=== PATIENT | female | born 1980 | race Caucasian/White ===

== ENCOUNTER 2017-02-07 08:00 | Outpatient (CLI) | payer MEDICAID | END 2017-02-07 08:01 | disposition home or self-care (01) | DX: Z33.1 Pregnant state, incidental (principal) ==

== ENCOUNTER 2017-06-16 07:36 | Outpatient (CLI) | payer MEDICAID, OTHER ==
[2017-06-16 19:26] LABS: BASOPHILS % (AUTO) 0.5 %; EOSINOPHILS % (AUTO) 0.6 %; HCT - HEMATOCRIT 37.5 % (37.0-47.0); HGB - HEMOGLOBIN 12.5 g/dL (12.0-16.0); LYMPHOCYTES # (AUTO) 2.1 10^3/uL (1.5-3.5); LYMPHOCYTES % (AUTO) 26.9 %; MEAN CORPUSCULAR HEMOGLOBIN 30.3 pg (27.0-31.0); MEAN CORPUSCULAR HGB CONC 33.5 g/dL (32.0-36.0); MEAN CORPUSCULAR VOLUME 90.6 fL (81.0-99.0); MEAN PLATELET VOLUME 8.7 fL (7.9-10.8); MONOCYTES # (AUTO) 0.4 10^3/uL (0.0-1.0); MONOCYTES % (AUTO) 4.7 %; NEUTROPHILS # (AUTO) 5.3 10^3/uL (1.5-6.6); NEUTROPHILS % (AUTO) 67.3 %; RED BLOOD COUNT 4.14 10^6/uL (4.20-5.40); UNCORRECTED WHITE BLOOD COUNT 7.8 x10^3/uL; WHITE BLOOD COUNT 7.8 x10^3/uL (4.8-10.8)
[2017-06-16 19:44] LABS: IRON 38 ug/dL (28-170); TOTAL IRON BINDING CAPACITY 350 ug/dL (250-450); TRANSFERRIN 250 mg/dL (192-382)
== END 2017-06-16 07:37 | disposition home or self-care (01) ==
LOC: LAB.WCP 07:36
PROVIDERS: ATTEND Family Medicine
DX: D50.9 Iron deficiency anemia, unspecified (principal)
CPT/HCPCS: 36415; 82728; 83540; 84466; 85025

== ENCOUNTER 2017-09-01 08:00 | Outpatient (CLI) | payer OTHER ==
[2017-09-01 13:44] LABS: BASOPHILS % (AUTO) 0.5 %; EOSINOPHILS # (AUTO) 0.1 10^3/uL (0.0-0.7); EOSINOPHILS % (AUTO) 1.6 %; HCT - HEMATOCRIT 38.3 % (37.0-47.0); HGB - HEMOGLOBIN 12.8 g/dL (12.0-16.0); LYMPHOCYTES # (AUTO) 3.4 10^3/uL (1.5-3.5); LYMPHOCYTES % (AUTO) 38.2 %; MEAN CORPUSCULAR HGB CONC 33.5 g/dL (32.0-36.0); MEAN CORPUSCULAR VOLUME 89.8 fL (81.0-99.0); MEAN PLATELET VOLUME 8.9 fL (7.9-10.8); MONOCYTES # (AUTO) 0.5 10^3/uL (0.0-1.0); MONOCYTES % (AUTO) 5.7 %; NEUTROPHILS # (AUTO) 4.9 10^3/uL (1.5-6.6); RED BLOOD COUNT 4.27 10^6/uL (4.20-5.40); RED CELL DISTRIBUTION WIDTH 14.6 % (12.0-15.0)
[2017-09-01 14:13] LABS: HEMOGLOBIN A1C 0.43 g/dL
[2017-09-01 14:29] LABS: BILIRUBIN,TOTAL 0.5 mg/dL (0.2-1.0); BUN - BLOOD UREA NITROGEN 12 mg/dL (6-20); CALCIUM 8.8 mg/dL (8.5-10.3); CARBON DIOXIDE - CO2 25 mmol/L (21-32); CHLORIDE 105 mmol/L (101-111); CHOL/HDL RATIO 4.4 (<4.4); CHOLESTEROL 222 mg/dL; CREATININE 0.7 mg/dL (0.4-1.0); GFR - MDRD 95 (>89); GLUCOSE 102 mg/dL (70-100); HDL CHOLESTEROL 50 mg/dL; IRON 28 ug/dL (28-170); LDL/HDL RATIO 3.1 (<4.4); POTASSIUM 3.9 mmol/L (3.5-5.0); SODIUM 136 mmol/L (135-145); TOTAL IRON BINDING CAPACITY 336 ug/dL (250-450); TOTAL PROTEIN 7.4 g/dL (6.7-8.2); TRANSFERRIN 240 mg/dL (192-382); TRIGLYCERIDES 94 mg/dL; VLDL CHOLESTEROL 19 mg/dL
== END 2017-09-01 08:01 | disposition home or self-care (01) ==
LOC: LAB.WCP 08:00
PROVIDERS: ATTEND Family Medicine
DX: D64.9 Anemia, unspecified (principal); E88.81 Metabolic syndrome and other insulin resistance
CPT/HCPCS: 36415; 80053; 80061; 82728; 83036; 83540; 84466; 85025

== ENCOUNTER 2018-02-17 13:54 | Outpatient (CLI) | payer OTHER ==
[~2018-02-17 13:54] MED LIST: GADOBUTROL 15 MMOL/15 ML VIAL ONE
[2018-02-17] MEDS ORDERED: GADOBUTROL 15 MMOL/15 ML VIAL IVP ONE (15:16)
--- NOTE | 2018-02-18 15:37 | MRI Preliminary Report ---
Exam: MRI ANGIO NECK W/WO (MRA) Impressions: 1. Normal exam. No aneurysm, dissection, stenosis, or AVM. [facility] SITE ID: [id number]
--- NOTE | 2018-02-18 15:37 | MRI Report ---
EXAM: MR ANGIOGRAM NECK EXAM DATE: 02/17/2018 03:32 PM. CLINICAL HISTORY: Left sided neck pain. COMPARISON: Accompanying MRA brain. TECHNIQUE: Multiplanar, multisequence MRA sequences of the neck were performed. Other: None. Post-pro cessing: Multiplanar 3D MIP reconstructions. IV Contrast: 11 cc Gadavist. Evaluation of arterial emily nosis is based on a NASCET method of measurement. Findings: Relevant images are indicated (image number, series number). Aortic arch is patent, normal configuration of the great vessels. Left carotid artery: Widely patent. Right carotid artery: Widely patent. Left vertebral artery: Widely patent. Right vertebral artery: Widely patent. Impressions: 1. Normal exam. No aneurysm, dissection, stenosis, or AVM. [facility] Referring Provider Line: [phone] SITE ID: [id number]
--- NOTE | 2018-02-18 15:52 | MRI Report ---
EXAM MRA BRAIN EXAM DATE: 02/17/2018 03:32 PM. CLINICAL HISTORY: Left sided neck pain. Family history of brain hemorrhage. COMPARISON: Accompanying MR angiogram neck. TECHNIQUE: Multiplanar, multisequence MRA sequences of the brain were performed. Other: None. Post-pr ocessing: Multiplanar 3D MIP reconstructions. IV Contrast: None. Findings: Relevant images are indicated (image number, series number). Left ICA: Patent including MCA, STEPHANIE distribution. Right ICA: Patent including MCA, STEPHANIE distribution. History circulation: Patent. No significant bilateral posterior communicating arteries. Impressions: 1. Patent major arteries of the brain, with normal anatomical variability as described. No aneurysm, dissection, stenosis, AVM. [facility] Referring Provider Line: [phone] SITE ID: [id number]
--- NOTE | 2018-02-18 15:52 | MRI Preliminary Report ---
Exam: MRI ANGIO BRAIN W/O (MRA) Impressions: 1. Patent major arteries of the brain, with normal anatomical variability as described. No aneurysm, dissection, stenosis, AVM. [facility] SITE ID: [id number]
== END 2018-02-17 13:55 | disposition home or self-care (01) ==
LOC: DI 13:54
PROVIDERS: ATTEND Family Medicine
DX: R51 Headache (principal); M54.2 Cervicalgia; Z82.49 Family history of ischemic heart disease and other diseases of the circulatory system
CPT/HCPCS: 70544; 70549; A9585

== ENCOUNTER 2018-04-18 08:00 | Outpatient (CLI) | payer OTHER ==
[2018-04-18 19:26] LABS: THYROID STIMULATING HORMONE 1.68 uIU/mL (0.34-5.60)
[2018-04-18 19:27] LABS: FREE T4 (FREE THYROXINE) 0.68 ng/dL (0.58-1.64)
[2018-04-19 15:20] LABS: HIV AG/AB 4TH GEN NON-REACTIVE (NON-REACTIVE)
[2018-04-20 12:01] LABS: HSV 1 IGG TYPE SPECIFIC AB 6.22 index; HSV 2 IGG TYPE SPECIFIC AB <0.90 index
== END 2018-04-18 08:01 | disposition home or self-care (01) ==
LOC: LAB.N 08:00
PROVIDERS: ATTEND Nurse Practitioner Obstetrics & Gynecology
DX: Z13.29 Encounter for screening for other suspected endocrine disorder (principal); Z11.3 Encounter for screening for infections with a predominantly sexual mode of transmission
CPT/HCPCS: 36415; 81599; 84439; 84443; 84481; 86592; 86695; 86696; 87389

== ENCOUNTER 2018-08-20 08:00 | Outpatient (CLI) | payer OTHER | END 2018-08-20 08:01 | disposition home or self-care (01) | LOC: LAB.R 08:00 | PROVIDERS: ATTEND Registered Nurse | DX: Z11.3 Encounter for screening for infections with a predominantly sexual mode of transmission (principal) | CPT/HCPCS: 87491; 87591 ==

== ENCOUNTER 2018-08-20 12:12 | Outpatient (CLI) | payer OTHER ==
[2018-08-21 13:28] LABS: HEPATITIS C ANTIBODY NON-REACTIVE (NON-REACTIVE)
[2018-08-21 14:22] LABS: HIV AG/AB 4TH GEN NON-REACTIVE (NON-REACTIVE)
[2018-08-22 10:21] LABS: HSV 1 IGG TYPE SPECIFIC AB 1.91 index; HSV 2 IGG TYPE SPECIFIC AB <0.90 index
== END 2018-08-20 12:13 | disposition home or self-care (01) ==
LOC: LAB 12:12
PROVIDERS: ATTEND Registered Nurse
DX: Z11.3 Encounter for screening for infections with a predominantly sexual mode of transmission (principal)
CPT/HCPCS: 36415; 81599; 86592; 86695; 86696; 86803; 87389; 87491; 87591

== ENCOUNTER 2019-01-24 08:00 | Outpatient (CLI) | payer OTHER ==
[2019-01-24 13:52] LABS: BASOPHILS % (AUTO) 0.4 %; EOSINOPHILS # (AUTO) 0.1 10^3/uL (0.0-0.7); EOSINOPHILS % (AUTO) 1.2 %; HGB - HEMOGLOBIN 11.9 g/dL (12.0-16.0); LYMPHOCYTES # (AUTO) 3.7 10^3/uL (1.5-3.5); LYMPHOCYTES % (AUTO) 44.4 %; MEAN CORPUSCULAR HEMOGLOBIN 28.1 pg (27.0-31.0); MEAN CORPUSCULAR HGB CONC 33.3 g/dL (32.0-36.0); MEAN CORPUSCULAR VOLUME 84.3 fL (81.0-99.0); MEAN PLATELET VOLUME 8.7 fL (7.9-10.8); MONOCYTES # (AUTO) 0.5 10^3/uL (0.0-1.0); MONOCYTES % (AUTO) 5.7 %; NEUTROPHILS # (AUTO) 4.1 10^3/uL (1.5-6.6); NEUTROPHILS % (AUTO) 48.3 %; PLT - PLATELET COUNT 388 10^3/uL (130-450); RED BLOOD COUNT 4.24 10^6/uL (4.20-5.40); RED CELL DISTRIBUTION WIDTH 15.1 % (12.0-15.0); WHITE BLOOD COUNT 8.4 x10^3/uL (4.8-10.8)
[2019-01-24 14:20] LABS: % IRON SATURATION 11 % (20-50); ALBUMIN 3.6 g/dL (3.2-5.5); ALBUMIN/GLOBULIN RATIO 0.9 (1.0-2.2); ALKALINE PHOSPHATASE 97 IU/L (42-121); ALT ALANINE AMINOTRANSFERASE 15 IU/L (10-60); AST ASPARTATE AMINOTRANSFERASE 23 IU/L (10-42); BILIRUBIN,TOTAL 0.3 mg/dL (0.2-1.0); BUN - BLOOD UREA NITROGEN 9 mg/dL (6-20); CARBON DIOXIDE - CO2 23 mmol/L (21-32); CHLORIDE 106 mmol/L (101-111); CHOL/HDL RATIO 4.7 (<4.4); CHOLESTEROL 221 mg/dL; CREATININE 0.7 mg/dL (0.4-1.0); GFR - MDRD 94 (>89); GLUCOSE 103 mg/dL (70-100); HDL CHOLESTEROL 47 mg/dL; IRON 37 ug/dL (28-170); LDL CHOLESTEROL,CALCULATED 154 mg/dL; LDL/HDL RATIO 3.3 (<4.4); SODIUM 138 mmol/L (135-145); TOTAL IRON BINDING CAPACITY 340 ug/dL (250-450); TOTAL PROTEIN 7.5 g/dL (6.7-8.2); TRANSFERRIN 243 mg/dL (192-382); VLDL CHOLESTEROL 20 mg/dL
== END 2019-01-24 23:59 | disposition home or self-care (01) ==
LOC: LAB.WCP 08:00
PROVIDERS: ATTEND Family Medicine
DX: R73.01 Impaired fasting glucose (principal); D64.9 Anemia, unspecified; D50.9 Iron deficiency anemia, unspecified
CPT/HCPCS: 36415; 80053; 80061; 83540; 83721; 84443; 84466; 85025

== ENCOUNTER 2019-07-08 08:00 | Outpatient (CLI) | payer OTHER | END 2019-07-08 23:59 | disposition home or self-care (01) | LOC: LAB.WCP 08:00 | PROVIDERS: ATTEND Family Medicine | DX: Z11.1 Encounter for screening for respiratory tuberculosis (principal) | CPT/HCPCS: 36415; 81599; 86480 ==

== ENCOUNTER 2019-07-18 11:32 | Outpatient (CLI) | payer OTHER ==
--- NOTE | 2019-07-19 00:37 | XRAY Report ---
Reason: SCREENING FOR TB Procedure Date: 07/18/2019 Accession Number: [id number] / [id number] Procedure: WCP - Chest 2 View X-Ray CPT Code: 49481 FULL RESULT: EXAM: CHEST RADIOGRAPHY EXAM DATE: 07/18/2019 12:02 PM. CLINICAL HISTORY: SCREENING FOR TB. Positive TB test. COMPARISON: None. TECHNIQUE: 2 views. FINDINGS: Lungs/Pleura: No focal opacities evident. No pleural effusion. No pneumothorax. Normal volumes. Mediastinum: Heart and mediastinal contours are unremarkable. Other: Bilateral metal nipple piercing. No evidence for acute or chronic tuberculosis. IMPRESSION: Normal 2-view chest radiography. [facility]
== END 2019-07-18 23:59 | disposition home or self-care (01) ==
LOC: DI.WCP 11:32 → EDSTATUS 13:24 → DI.WCP 23:59
PROVIDERS: ATTEND Family Medicine
DX: Z11.1 Encounter for screening for respiratory tuberculosis (principal)
CPT/HCPCS: 71046

== ENCOUNTER 2019-10-31 09:30 | Outpatient (CLI) | payer OTHER ==
[2019-11-01 12:11] LABS: HEPATITIS C ANTIBODY NON-REACTIVE (NON-REACTIVE)
[2019-11-01 13:21] LABS: HEPATITIS B SURFACE ANTIGEN NON-REACTIVE (NON-REACTIVE)
[2019-11-01 13:30] LABS: HIV AG/AB 4TH GEN NON-REACTIVE (NON-REACTIVE)
[2019-11-02 13:01] LABS: HSV 1 IGG TYPE SPECIFIC AB 1.42 index; HSV 2 IGG TYPE SPECIFIC AB <0.90 index
== END 2019-10-31 09:31 | disposition home or self-care (01) ==
LOC: LAB 09:30
PROVIDERS: ATTEND Nurse Practitioner Obstetrics & Gynecology
DX: Z11.3 Encounter for screening for infections with a predominantly sexual mode of transmission (principal)
CPT/HCPCS: 36415; 81599; 86592; 86695; 86696; 86803; 87340; 87389

== ENCOUNTER 2019-12-11 08:00 | Outpatient (CLI) | payer OTHER ==
[2019-12-11 21:08] LABS: CANDIDA GROUP DNA NEGATIVE (NEGATIVE); CANDIDA KRUSEI DNA NEGATIVE (NEGATIVE); TRICHOMONAS VAGINALIS DNA POSITIVE (NEGATIVE)
[2019-12-11 22:40] LABS: TRICHOMONAS VAGINALIS DNA POSITIVE (NEGATIVE)
== END 2019-12-11 23:59 | disposition home or self-care (01) ==
LOC: LAB.R 08:00
PROVIDERS: ATTEND Nurse Practitioner Obstetrics & Gynecology
DX: Z11.3 Encounter for screening for infections with a predominantly sexual mode of transmission (principal); N89.8 Other specified noninflammatory disorders of vagina
CPT/HCPCS: 87491; 87591; 87661; 87801

== ENCOUNTER 2019-12-11 10:06 | Outpatient (CLI) | payer OTHER ==
[2019-12-12 14:35] LABS: HIV AG/AB 4TH GEN NON-REACTIVE (NON-REACTIVE)
[2019-12-12 15:13] LABS: HEPATITIS C ANTIBODY NON-REACTIVE (NON-REACTIVE)
[2019-12-12 15:14] LABS: HEPATITIS B SURFACE ANTIGEN NON-REACTIVE (NON-REACTIVE)
== END 2019-12-11 10:07 | disposition home or self-care (01) ==
LOC: LAB 10:06
PROVIDERS: ATTEND Nurse Practitioner Obstetrics & Gynecology
DX: Z11.3 Encounter for screening for infections with a predominantly sexual mode of transmission (principal); N89.8 Other specified noninflammatory disorders of vagina
CPT/HCPCS: 36415; 81599; 86592; 86803; 87340; 87389; 87491; 87591; 87661; 87801

== ENCOUNTER 2020-01-07 07:00 | Outpatient (CLI) | payer OTHER ==
[2020-01-07 20:56] LABS: TRICHOMONAS VAGINALIS DNA NEGATIVE (NEGATIVE)
== END 2020-01-07 23:59 | disposition home or self-care (01) ==
LOC: LAB.R 07:00
PROVIDERS: ATTEND Nurse Practitioner Obstetrics & Gynecology
DX: Z11.3 Encounter for screening for infections with a predominantly sexual mode of transmission (principal)
CPT/HCPCS: 87491; 87591; 87661

== ENCOUNTER 2020-03-12 08:00 | Outpatient (CLI) | payer OTHER ==
[2020-03-12 20:59] LABS: TRICHOMONAS VAGINALIS DNA NEGATIVE (NEGATIVE)
== END 2020-03-12 23:59 | disposition home or self-care (01) ==
LOC: LAB.R 08:00
PROVIDERS: ATTEND Advanced Practice Midwife
DX: Z20.2 Contact with and (suspected) exposure to infections with a predominantly sexual mode of transmission (principal)
CPT/HCPCS: 87491; 87591; 87661

== ENCOUNTER 2020-08-07 07:00 | Outpatient (CLI) | payer OTHER | END 2020-08-07 23:59 | disposition home or self-care (01) | LOC: LAB.R 07:00 | PROVIDERS: ATTEND Nurse Practitioner Obstetrics & Gynecology | DX: Z11.3 Encounter for screening for infections with a predominantly sexual mode of transmission (principal) | CPT/HCPCS: 81599; 87491; 87591 ==

== ENCOUNTER 2020-08-07 10:43 | Outpatient (CLI) | payer OTHER ==
[2020-08-08 08:30] LABS: HIV AG/AB 4TH GEN NON-REACTIVE (NON-REACTIVE)
[2020-08-10 14:36] LABS: HEPATITIS C ANTIBODY NON-REACTIVE (NON-REACTIVE)
[2020-08-11 14:10] LABS: HSV 2 IGG TYPE SPECIFIC AB <0.90 index
== END 2020-08-07 10:44 | disposition home or self-care (01) ==
LOC: LAB 10:43
PROVIDERS: ATTEND Nurse Practitioner Obstetrics & Gynecology
DX: Z11.3 Encounter for screening for infections with a predominantly sexual mode of transmission (principal)
CPT/HCPCS: 36415; 81599; 86592; 86695; 86696; 86803; 87389

== ENCOUNTER 2020-11-26 15:27 | Outpatient (CLI) | payer OTHER ==
[2020-11-26 19:17] LABS: HEMOGLOBIN A1c% 5.5 % (4.27-6.07)
[2020-11-26 21:40] LABS: TRICHOMONAS VAGINALIS DNA NEGATIVE (NEGATIVE)
== END 2020-11-26 15:28 | disposition home or self-care (01) ==
LOC: LAB 15:27
PROVIDERS: ATTEND Obstetrics & Gynecology
DX: Z11.3 Encounter for screening for infections with a predominantly sexual mode of transmission (principal); Z12.4 Encounter for screening for malignant neoplasm of cervix; Z68.41 Body mass index [BMI] 40.0-44.9, adult
CPT/HCPCS: 36415; 83036; 87491; 87591; 87661

== ENCOUNTER 2022-01-12 12:56 | Outpatient (CLI) | payer OTHER ==
[2022-01-12 18:39] LABS: BASOPHILS % (AUTO) 0.3 %; EOSINOPHILS # (AUTO) 0.1 10^3/uL (0.0-0.7); EOSINOPHILS % (AUTO) 1.4 %; HCT - HEMATOCRIT 39.3 % (37.0-47.0); LYMPHOCYTES # (AUTO) 4.5 10^3/uL (1.5-3.5); LYMPHOCYTES % (AUTO) 44.5 %; MEAN CORPUSCULAR HEMOGLOBIN 30.1 pg (27.0-31.0); MEAN CORPUSCULAR HGB CONC 33.1 g/dL (32.0-36.0); MEAN PLATELET VOLUME 10.8 fL (7.9-10.8); MONOCYTES # (AUTO) 0.5 10^3/uL (0.0-1.0); NEUTROPHILS # (AUTO) 4.9 10^3/uL (1.5-6.6); NEUTROPHILS % (AUTO) 48.6 %; PLT - PLATELET COUNT 354 10^3/uL (130-450); RED BLOOD COUNT 4.32 10^6/uL (4.20-5.40)
[2022-01-12 19:47] LABS: % IRON SATURATION 22 % (20-50); ALBUMIN 3.7 g/dL (3.2-5.5); ALBUMIN/GLOBULIN RATIO 0.9 (1.0-2.2); ALKALINE PHOSPHATASE 87 IU/L (42-121); ALT ALANINE AMINOTRANSFERASE 20 IU/L (10-60); AST ASPARTATE AMINOTRANSFERASE 21 IU/L (10-42); BILIRUBIN,TOTAL 0.7 mg/dL (0.2-1.0); BUN - BLOOD UREA NITROGEN 10 mg/dL (6-20); CALCIUM 8.9 mg/dL (8.5-10.3); CARBON DIOXIDE - CO2 24 mmol/L (21-32); CHLORIDE 102 mmol/L (101-111); CHOL/HDL RATIO 3.9 (<4.4); CHOLESTEROL 181 mg/dL; CREATININE 0.7 mg/dL (0.4-1.0); GFR - MDRD 93 (>89); GLUCOSE 103 mg/dL (70-100); HDL CHOLESTEROL 47 mg/dL; IRON 75 ug/dL (28-170); LDL CHOLESTEROL,CALCULATED 107 mg/dL; LDL/HDL RATIO 2.3 (<4.4); POTASSIUM 3.8 mmol/L (3.5-5.0); SODIUM 136 mmol/L (135-145); TOTAL IRON BINDING CAPACITY 346 ug/dL (250-450); TOTAL PROTEIN 7.7 g/dL (6.7-8.2); TRANSFERRIN 247 mg/dL (192-382); TRIGLYCERIDES 135 mg/dL; VLDL CHOLESTEROL 27 mg/dL
[2022-01-12 20:03] LABS: THYROID STIMULATING HORMONE 1.15 uIU/mL (0.34-5.60)
[2022-01-12 20:10] LABS: FERRITIN 28.8 ng/mL (11.0-306.8)
[2022-01-12 20:13] LABS: FOLATE 19.8 ng/mL (5.90 - >24.8)
[2022-01-12 21:13] LABS: ESTIMATED AVERAGE GLUCOSE 117 mg/dL (70-100); HEMOGLOBIN A1c% 5.7 % (4.27-6.07)
== END 2022-01-12 12:57 | disposition home or self-care (01) ==
LOC: LAB.N 12:56
PROVIDERS: ATTEND Physician Assistant
DX: D50.9 Iron deficiency anemia, unspecified (principal); R73.01 Impaired fasting glucose; Z13.220 Encounter for screening for lipoid disorders; Z13.29 Encounter for screening for other suspected endocrine disorder
CPT/HCPCS: 36415; 80053; 80061; 82607; 82728; 82746; 83036; 83540; 83721; 84443; 84466; 85025

== ENCOUNTER 2022-01-24 12:19 | Outpatient (CLI) | payer OTHER ==
[2022-01-24 18:54] LABS: BASOPHILS % (AUTO) 0.4 %; EOSINOPHILS # (AUTO) 0.2 10^3/uL (0.0-0.7); EOSINOPHILS % (AUTO) 1.6 %; HCT - HEMATOCRIT 41.5 % (37.0-47.0); HGB - HEMOGLOBIN 13.5 g/dL (12.0-16.0); LYMPHOCYTES # (AUTO) 4.4 10^3/uL (1.5-3.5); LYMPHOCYTES % (AUTO) 42.7 %; MEAN CORPUSCULAR HEMOGLOBIN 29.8 pg (27.0-31.0); MEAN CORPUSCULAR HGB CONC 32.5 g/dL (32.0-36.0); MEAN CORPUSCULAR VOLUME 91.6 fL (81.0-99.0); MEAN PLATELET VOLUME 10.8 fL (7.9-10.8); MONOCYTES # (AUTO) 0.7 10^3/uL (0.0-1.0); MONOCYTES % (AUTO) 6.5 %; NEUTROPHILS % (AUTO) 48.7 %; PLT - PLATELET COUNT 367 10^3/uL (130-450); RED BLOOD COUNT 4.53 10^6/uL (4.20-5.40); RED CELL DISTRIBUTION WIDTH 13.4 % (12.0-15.0); WHITE BLOOD COUNT 10.3 x10^3/uL (4.8-10.8)
[2022-01-24 19:42] LABS: ALBUMIN 3.9 g/dL (3.2-5.5); BILIRUBIN,DIRECT 0.1 mg/dL (0.1-0.5); BILIRUBIN,TOTAL 0.4 mg/dL (0.2-1.0); CALCIUM 9.1 mg/dL (8.5-10.3); CREATININE 0.7 mg/dL (0.4-1.0); POTASSIUM 4.1 mmol/L (3.5-5.0); TOTAL PROTEIN 7.7 g/dL (6.7-8.2)
== END 2022-01-24 12:20 | disposition home or self-care (01) ==
LOC: LAB.N 12:19
PROVIDERS: ATTEND Physician Assistant
DX: B35.1 Tinea unguium (principal)
CPT/HCPCS: 36415; 80048; 80076; 85025

== ENCOUNTER 2022-08-23 08:48 | Outpatient (CLI) | payer OTHER ==
--- NOTE | 2022-08-24 10:13 | Mammography Report ---
BILATERAL DIGITAL SCREENING MAMMOGRAM 3D/2D: 08/23/2022 CLINICAL: Routine screening. Baseline exam. No prior exams were available for comparison. There are scattered areas of fibroglandular density in both breasts (category b / 25%-50% glandular t issue). There is a possible irregular equal density asymmetry in the right breast at 12 o'clock anterior dept h. No other significant masses, calcifications, or other findings are seen in either breast. IMPRESSION: INCOMPLETE: NEEDS ADDITIONAL IMAGING EVALUATION The possible irregular equal density asymmetry in the right breast is indeterminate. Additional view s with possible ultrasound are recommended. Based on the Tyrer Cuzick model (a risk assessment model) the patients lifetime risk is 10.5% and he r 10 year risk is 1.3%. According to the ACR, ACS, and NCCN guidelines, an annual breast MRI exam amor ng with mammogram is recommended if the patients lifetime risk is 20% or greater. This exam was interpreted at Station ID: [id number]. NOTE: For mammograms, a report in lay terms will be sent to the patient. Approximately 15% of breast malignancies will not be visualized mammographically. In the management of a palpable breast mass, a negative mammogram must not discourage biopsy of a clinically suspicious lesion. Electronically Signed By: Jasmeet Nicole M.D. aty/:08/23/2022 17:27:31 ACR BI-RADS Category 0: Incomplete 3340F PARENCHYMAL PATTERN: (A) - The breast(s) demonstrate(s) scattered fibroglandular densities. BI-RADS CATEGORY: (0) - 0 Mammo and [place] [id number] Immediate follow-up LATERALITY: (R)
== END 2022-08-23 08:49 | disposition home or self-care (01) ==
LOC: DI.N 08:48
PROVIDERS: ATTEND Physician Assistant
DX: Z12.31 Encounter for screening mammogram for malignant neoplasm of breast (principal); R92.8 Other abnormal and inconclusive findings on diagnostic imaging of breast

== ENCOUNTER 2022-08-30 10:43 | Outpatient (CLI) | payer OTHER ==
--- NOTE | 2022-08-31 09:26 | Mammography Report ---
UNILATERAL RIGHT DIGITAL DIAGNOSTIC MAMMOGRAM 3D/2D: 08/30/2022 CLINICAL: Patient returns today to evaluate a focal asymmetry in the right breast. Comparison is made to exam dated: 08/23/2022 mammogram - [facility]. There are scattered areas of fibroglandular density in the right breast (category b / 25%-50% glandul ar tissue). The previously described possible irregular equal density asymmetry in the right breast at 12 o'clock in the retroareolar region is less prominent and decreased in size. It is not definitively confirme d on today's images. No other significant masses or calcifications are seen in the breast. IMPRESSION: INCOMPLETE: NEEDS ADDITIONAL IMAGING EVALUATION The possible irregular equal density asymmetry in the right breast resembles fibroglandular tissue an d is indeterminate. An ultrasound is recommended for further evaluation and is scheduled to immedia tely follow this examination. Based on the Tyrer Cuzick model (a risk assessment model) the patients lifetime risk is 10.5% and he r 10 year risk is 1.3%. According to the ACR, ACS, and NCCN guidelines, an annual breast MRI exam amor ng with mammogram is recommended if the patients lifetime risk is 20% or greater. This exam was interpreted at Station ID: [id number]. NOTE: For mammograms, a report in lay terms will be sent to the patient. Approximately 15% of breast malignancies will not be visualized mammographically. In the management of a palpable breast mass, a negative mammogram must not discourage biopsy of a clinically suspicious lesion. Electronically Signed By: Jasmeet Nicole M.D. aty/:08/30/2022 11:27:15 ACR BI-RADS Category 0: Incomplete 3340F PARENCHYMAL PATTERN: (A) - The breast(s) demonstrate(s) scattered fibroglandular densities. BI-RADS CATEGORY: (0) - 0 Ultrasound [id number] Immediate follow-up LATERALITY: (R)
--- NOTE | 2022-08-31 09:26 | Ultrasound Report ---
LIMITED ULTRASOUND OF RIGHT BREAST: 08/30/2022 CLINICAL: Patient returns today to evaluate a focal asymmetry in the right breast. No prior exams were available for comparison. Color flow ultrasound of the right breast 12 o'clock, and retroareolar regions was performed. Elder s esperanza images of the real-time examination were reviewed. No significant abnormalities were seen sonographically in the right breast. IMPRESSION: NEGATIVE There is no sonographic evidence of malignancy. There is no abnormality seen in the right breast to correspond with the mammography finding. A 1 year screening mammogram is recommended. Findings and recommendations were conveyed to the patient during today's evaluation. This exam was interpreted at Station ID: [id number]. Electronically Signed By: Jasmeet Nicole M.D. aty/:08/31/2022 08:42:36 Ultrasound BI-RADS: 1 Negative BI-RADS CATEGORY: (1) - 1 RECOMMENDATION: (ANNUAL) - Recommend routine annual screening mammography. [id number] 1 year screening LATERALITY: (B)
== END 2022-08-30 10:44 | disposition home or self-care (01) ==
LOC: DI 10:43
PROVIDERS: ATTEND Family Medicine
DX: R92.8 Other abnormal and inconclusive findings on diagnostic imaging of breast (principal)

== ENCOUNTER 2022-10-14 11:15 | Outpatient (CLI) | payer OTHER ==
[2022-10-14 11:48] LABS: BASOPHILS % (AUTO) 0.3 %; EOSINOPHILS # (AUTO) 0.1 10^3/uL (0.0-0.7); EOSINOPHILS % (AUTO) 0.7 %; HCT - HEMATOCRIT 40.9 % (37.0-47.0); HGB - HEMOGLOBIN 13.5 g/dL (12.0-16.0); LYMPHOCYTES # (AUTO) 4.3 10^3/uL (1.5-3.5); LYMPHOCYTES % (AUTO) 43.9 %; MEAN CORPUSCULAR HEMOGLOBIN 29.9 pg (27.0-31.0); MEAN CORPUSCULAR VOLUME 90.5 fL (81.0-99.0); MEAN PLATELET VOLUME 9.7 fL (7.9-10.8); MONOCYTES # (AUTO) 0.6 10^3/uL (0.0-1.0); MONOCYTES % (AUTO) 5.8 %; NEUTROPHILS # (AUTO) 4.8 10^3/uL (1.5-6.6); NEUTROPHILS % (AUTO) 49.1 %; PLT - PLATELET COUNT 364 10^3/uL (130-450); RED BLOOD COUNT 4.52 10^6/uL (4.20-5.40); WHITE BLOOD COUNT 9.8 x10^3/uL (4.8-10.8)
[2022-10-14 12:13] LABS: ALBUMIN 3.8 g/dL (3.2-5.5); BILIRUBIN,TOTAL 0.7 mg/dL (0.2-1.0); CALCIUM 9.2 mg/dL (8.5-10.3); CREATININE 0.6 mg/dL (0.4-1.0); POTASSIUM 3.7 mmol/L (3.5-5.0); TOTAL PROTEIN 7.5 g/dL (6.7-8.2)
[2022-10-14 12:18] LABS: THYROID STIMULATING HORMONE 1.12 uIU/mL (0.34-5.60)
[2022-10-14 12:25] LABS: FERRITIN 44.3 ng/mL (11.0-306.8)
[2022-10-14 12:29] LABS: FOLATE 5.78 ng/mL (5.90 - >24.8)
[2022-10-14 12:51] LABS: ESTIMATED AVERAGE GLUCOSE 117 mg/dL (70-100); HEMOGLOBIN A1c% 5.7 % (4.27-6.07)
[2022-10-17 11:08] LABS: HDL-P (TOTAL) 29.7 umol/L (>=30.5); LDL SIZE 21.6 nm (>20.5); LDL-P 1832 nmol/L (<1000); LP-INSULIN RESISTANCE SCORE 40 (<=45); SMALL LDL-P 537 nmol/L (<=527)
== END 2022-10-14 11:16 | disposition home or self-care (01) ==
LOC: LAB 11:15
DX: E66.01 Morbid (severe) obesity due to excess calories (principal)
CPT/HCPCS: 36415; 80053; 82306; 82607; 82728; 82746; 83036; 83540; 83704; 83921; 83970; 84134; 84425; 84443; 84466; 85025

== ENCOUNTER 2022-10-14 11:19 | Outpatient (CLI) | payer OTHER ==
--- NOTE | 2022-10-14 13:06 | XRAY Report ---
PROCEDURE: Chest 1 View X-Ray INDICATIONS: MORBID OBESITY TECHNIQUE: One view of the chest was acquired. COMPARISON: CXR 07/18/2019. FINDINGS: Surgical changes and devices: None. Lungs and pleura: No pleural effusions or pneumothorax. Lungs appear clear. Mediastinum: Mediastinal contours appear normal and unchanged. Heart size is normal. Bones and chest wall: No suspicious bony lesions. Overlying soft tissues appear unremarkable. IMPRESSION: No acute cardiopulmonary abnormality. Reviewed by: Adria Craig MD on 10/14/2022 1:04 PM PST Approved by: Adria Craig MD on 10/14/2022 1:04 PM [facility] Station ID: [id number]
== END 2022-10-14 11:20 | disposition home or self-care (01) ==
LOC: DI 11:19
PROVIDERS: ATTEND Surgery
DX: E66.01 Morbid (severe) obesity due to excess calories (principal)

== ENCOUNTER 2022-10-27 08:00 | Outpatient (CLI) | payer OTHER ==
[2022-10-27 23:13] LABS: CHLAMYDIA TRACHOMATIS DNA NEGATIVE (NEGATIVE); NEISSERIA GONORRHOEAE DNA NEGATIVE (NEGATIVE); TRICHOMONAS VAGINALIS DNA NEGATIVE (NEGATIVE)
== END 2022-10-27 23:59 | disposition home or self-care (01) ==
LOC: LAB.WC 08:00
PROVIDERS: ATTEND Obstetrics & Gynecology
DX: Z11.3 Encounter for screening for infections with a predominantly sexual mode of transmission (principal)
CPT/HCPCS: 87491; 87591; 87661

== ENCOUNTER 2022-10-27 14:38 | Outpatient (CLI) | payer OTHER ==
[2022-10-28 04:09] LABS: HBsAG SCREEN Negative (Negative)
[2022-10-28 06:09] LABS: HCV AB <0.1 s/co ratio (0.0-0.9)
[2022-10-28 08:10] LABS: HSV 1 IGG TYPE SPEC 6.57 index (0.00-0.90); HSV 2 IGG TYPE SPEC <0.91 index (0.00-0.90); RPR Non Reactive (Non Reactive)
[2022-10-28 10:09] LABS: HIV SCREEN 4TH GENERATION Non Reactive (Non Reactive)
== END 2022-10-27 14:39 | disposition home or self-care (01) ==
LOC: LAB 14:38
PROVIDERS: ATTEND Obstetrics & Gynecology
DX: Z11.3 Encounter for screening for infections with a predominantly sexual mode of transmission (principal)
CPT/HCPCS: 36415; 86592; 86695; 86696; 86803; 87340; 87389

== ENCOUNTER 2022-11-01 05:55 | Day surgery (SDC) | payer OTHER ==
[2022-10-31 18:12] LABS: HCG UR QUAL NEGATIVE
[2022-11-01] MEDS ORDERED: LACTATED RINGERS 1,000 ML IV ONE ×2 (06:27→09:11)
[2022-11-01] MEDS ORDERED: ONDANSETRON 4 MG/2 ML VIAL IVP PRN (06:54)
[2022-11-01] MEDS ORDERED: ePHEDrine 50 MG/ML VIAL IVP PRN (06:54)
[2022-11-01] MEDS ORDERED: fentaNYL 100 MCG/2 ML VIAL IVP PRN (06:54)
[2022-11-01] MEDS ORDERED: ATROPINE ABBOJECT 1 MG/10 ML SYRINGE IVP PRN (06:54)
[2022-11-01] MEDS ORDERED: MORPHINE 2 MG/ML CARPUJECT IVP PRN (06:54)
[2022-11-01] MEDS ORDERED: HYDROmorphone 0.5 MG/0.5 ML SYRINGE IVP PRN (06:54)
[2022-11-01] MEDS ORDERED: METOCLOPRAMIDE 10 MG/2 ML VIAL IVP PRN (06:54)
[2022-11-01] MEDS ORDERED: NALOXONE 0.4 MG/ML VIAL IVP PRN (06:54)
--- NOTE | 2022-11-01 06:54 | ANESTHESIA ---
Pre-Anesthesia VS, & Labs - Diagnosis desires sterilization - Procedure laparoscopic tubal ligation Vital Signs: Temp Pulse Resp BP Pulse Ox O2 Flow Rate 36.6 C 84 18 120/68 97 11/01/22 06:15 11/01/22 06:15 11/01/22 06:15 11/01/22 06:15 11/01/22 06:15 Height: 5 ft 5 in Weight (kg): 117.6 kg Body Mass Index: 43.1 BMI Classification: Morbidly Obese - NPO >8 hours - Is Patient ?: No - Lab Results Lab results reviewed: Yes Home Medications and Allergies No Known Home Medications 12/04/15 Allergies/Adverse Reactions: Allergies Allergy/AdvReac Type Severity Reaction Status Date / Time neomycin sulfate * Allergy Intermediate Rash Verified 12/04/15 14:40 [From Neosporin (opx-gic-pdgla)] polymyxin B Allergy Intermediate Rash Verified 12/04/15 14:40 [From Neosporin (owz-kja-tulif)] codeine AdvReac Mild Nausea Verified 12/04/15 14:40 Anes History & Medical History - Anesthetic History Anesthesia Complications: reports: No previous complications Family history of Anesthesia Complications: Denies Family history of Malignant Hyperthermia: Denies - Medical History Cardiovascular: reports: None Pulmonary: reports: None Gastrointestinal: reports: None Urinary: reports: None Musculoskeletal: reports: None Endocrine/Autoimmune: reports: None Skin: reports: Eczema Smoking Status: Never smoker Psychosocial: reports: No issues indicated, Cannabis History of Cancer?: No - Surgical History Eyes Ears Nose Throat (EENT): reports: Tonsil/Adenoidectomy Gynecologic: reports: Dilation and currettage Exam General: Alert, Oriented x3, Cooperative Dental: Loose/Frag, Poor dentition Mouth Openin Fingerbreadth Neck Mobility: Normal Mallampati classification: III Thyromental Distance: 4-6 cm Respiratory: Lungs clear, Normal breath sounds, No respiratory distress Cardiovascular: Regular rate Abdomen: Normal bowel sounds Neurological: Normal speech Mental/Cognitive Status: Alert/Oriented X3, Normal for patient Cognitive Status: Within normal limits Plan Anesthesia Type: General Consent for Procedure(s) Verified and Reviewed: Yes Code Status: Attempt Resuscitation ASA classification: 2-Mild systemic disease Is this case an emergency?: No
[2022-11-01] MEDS ORDERED: LACTATED RINGERS 1,000 ML IV SCH (07:00)
[2022-11-01] MEDS ORDERED: MIDAZOLAM 2 MG/2 ML VIAL ONE (07:07)
[2022-11-01] MEDS ORDERED: fentaNYL 100 MCG/2 ML VIAL ONE ×2 (07:07→08:31)
[2022-11-01] MEDS ORDERED: PROPOFOL 200 MG/20 ML VIAL IVP ONE (07:08)
[2022-11-01] MEDS ORDERED: ROCURONIUM 50 MG/5 ML VIAL ONE ×2 (07:08→08:27)
[2022-11-01] MEDS ORDERED: LIDOCAINE-PF 2% 10 ML AMP SUBQ ONE (07:09)
[2022-11-01] MEDS ORDERED: BUPIVACAINE 0.25% PF 10 ML VIAL ONE (07:13)
[2022-11-01] MEDS ORDERED: LIDOCAINE MPF 2%-EPI 1:200000 20 ML VIAL ONE (07:14)
--- NOTE | 2022-11-01 07:34 | SURGERY HX AND PHYSICAL(T) ---
Surgical History & Physical - Chief Complaint/HPI Chief Complaint: Desires permanent sterilization History of Present Illness: 42yo presents for scheduled laparoscopic bilateral salpingectomy. She is sure she does not wish to have any more children. Does not want another Nexp lanon or any other contraception. - PMH/PSH/Social Hx Eyes, Ears, Nose, Throat: None Cardiovascular: None Respiratory: None Skin: Eczema Endocrine/Autoimmune: None Gastrointestinal: None Urinary: None Musculoskeletal: None Psychiatric: Anxiety Eyes Ears Nose Throat (EENT): Tonsil/Adenoidectomy Smoking Status: Never smoker Does the pt drink ETOH?: No Does the pt have substance abuse?: No Substance Use and Type: Marijuana - Family Hx Family Hx: Unremarkable - Home Meds and Allergies Home Medications: No Known Home Medications 12/04/15 Allergies/Adverse Reactions: Allergies Allergy/AdvReac Type Severity Reaction Status Date / Time neomycin sulfate * Allergy Intermediate Rash Verified 12/04/15 14:40 [From Neosporin (eoo-nly-cydds)] polymyxin B Allergy Intermediate Rash Verified 12/04/15 14:40 [From Neosporin ([id number]-beu-jyfbs)] codeine AdvReac Mild Nausea Verified 12/04/15 14:40 - Vital Signs Heart Rate: 84 Blood Pressure: 120/68 Temperature: 97.9 F Respiratory Rate: 18 O2 Saturation: 97 Weight (kg): 117.6 kg Height: 5 ft 5 in - Physical Exam General Appearance: positive: No acute distress Eyes Bilatera: positive: EOMI Respiratory: positive: No respiratory distress Abdomen: positive: Non-tender Skin: positive: Color nml Extremities: positive: Non-tender Neurologic/Psychiatric: positive: Oriented x3 - Patient Review Patient Review: Problems were reviewed with the patient during this visit. Medications were reviewed with the patient during this visit. Allergies were reviewed this patient during this visit. Pertinent Tests Reviewed: All pertitent test for this patient were reviewed. - Assessment & Plan Assessment and Plan: 42yo desiring permanent sterilization - Informed consent obtained for laparoscopic bilateral salpingectomy - Follow up postoperatively
[2022-11-01] MEDS ORDERED: ONDANSETRON 4 MG/2 ML VIAL ONE (07:53)
[2022-11-01] MEDS ORDERED: DEXAMETHASONE 4 MG/ML VIAL ONE (07:53)
[2022-11-01] MEDS ORDERED: PHENYLEPHRINE 10 MG/ML VIAL ONE (08:03)
[2022-11-01] MEDS ORDERED: BUPIVACAINE 0.25% PF 10 ML VIAL SUBQ ONE ×2 (08:37)
[2022-11-01] MEDS ORDERED: SUGAMMADEX 200 MG/2 ML VIAL IVP ONE (08:51)
[2022-11-01] MEDS ORDERED: KETOROLAC 30 MG/ML VIAL ONE (08:55)
--- NOTE | 2022-11-01 09:08 | OPERATIVE REPORT ---
Operative Report - General Procedure Date: 11/01/22 Planned Procedure: Laparoscopic bilateral salpingectomy Pre-Op Diagnosis: Multiparity, desires permanent sterilization Procedure Performed: Laparoscopic bilateral salpingectomy Post Op Diagnosis: Multiparity, desires permanent sterilization - Procedure Note Primary Surgeon: Bridgette Villegas DO Secondary Surgeon: Rhys Tamayo MD; assistance required for retraction and safe completion Anesthesia Provider: Darrell Barriga CRNA Anesthesia Technique: General ET tube Pathology: Bilateral fallopian tubes Indications: Desires permanent sterilization Findings: Normal appearing uterus, tubes, and ovaries Complications: None - Other Other Information/Narrative: Patient taken to OR where GETA obtained without difficulty. Patient was then examined and found to have small anteverted uterus with normal adnexa. Placed in dorsal lithotomy position and prepped and draped in sterile fashion. Conway speculum placed in vagina and Hulka manipulator placed into uterus. Attention then turned to abdomen where 5mm vertical skin incision made in umbilical fold. Veress needle carefully introduced into peritoneal cavity but drop in intraabdominal pressure not noted. Direct visualization entry then successful. Trocar and sleeve advanced without difficulty into abdomen where intraabdominal placement confirmed with laparoscope. Two additional 5mm incisions made in pelvis bilaterally and trocars introduced under direct visualization. 0.5% bupivacaine injection prior to skin incisions x3. Aforementioned findings noted. Left fallopian tube grasped and LigaSure device used for transection along mesosalpinx up to uterine cornu. This was repeated on the right fallopian tube. Tubes removed through left 5mm port. Hemostasis at all dissection sites. Trocars removed under direct visualization. Pneumoperitoneum released. Umbilical trocar removed. 5mm incisions x3 were closed with dermabond. Sponge, lap, needle, and instrument counts were correct x2. Patient taken to PACU in stable condition.
[2022-11-01 10:11] VITALS: BP 112/65
[2022-11-01] MEDS ORDERED: ACETAMINOPHEN 1,000 MG/100 ML 1,000 MG/100 ML BAG IV ONE (10:29)
--- NOTE | 2022-11-01 12:28 | ANESTHESIA POST OP EVALUATION ---
Anesthesia Post Eval - Post Anesthesia Eval Vitals: Last Vital Signs Temp 36.8 C 11/01/22 10:05 Pulse 78 11/01/22 10:05 Resp 16 11/01/22 10:05 BP 112/65 11/01/22 10:05 Pulse Ox 100 11/01/22 10:05 O2 Flow Rate CV Function Including HR & BP: Stable Pain Control: Satisfactory Nausea & Vomiting: Negative Mental Status: Baseline Respiratory Status: Airway Patent Hydration Status: Satisfactory Anesthesia Complications: None
== END 2022-11-01 05:56 | disposition home or self-care (01) ==
LOC: SDS 05:55
PROVIDERS: ATTEND Obstetrics & Gynecology
PROC: 0UT74ZZ Resection of Bilateral Fallopian Tubes, Percutaneous Endoscopic Approach (ICD-10-PCS; principal; 2022-11-01 07:30)
DX: Z30.2 Encounter for sterilization (principal); E66.01 Morbid (severe) obesity due to excess calories; Z68.41 Body mass index [BMI] 40.0-44.9, adult
CPT/HCPCS: 58661; 81025; 87635; J0131; J7120

== ENCOUNTER 2022-11-11 20:49 | Outpatient (CLI) | payer OTHER | END 2022-11-11 20:50 | disposition home or self-care (01) | LOC: RT 20:49 | PROVIDERS: ATTEND Surgery | DX: E66.01 Morbid (severe) obesity due to excess calories (principal) | CPT/HCPCS: 93005 ==

== ENCOUNTER 2023-01-12 10:30 | Outpatient (CLI) | payer OTHER | END 2023-01-12 23:59 | disposition home or self-care (01) | LOC: LAB.WCP 10:30 | PROVIDERS: ATTEND Physician Assistant | DX: R19.7 Diarrhea, unspecified (principal) | CPT/HCPCS: 87493 ==

== ENCOUNTER 2023-02-08 10:21 | Outpatient (CLI) | payer OTHER ==
[2023-02-08 18:15] LABS: BASOPHILS % (AUTO) 0.4 %; EOSINOPHILS # (AUTO) 0.1 10^3/uL (0.0-0.7); EOSINOPHILS % (AUTO) 1.5 %; HGB - HEMOGLOBIN 12.4 g/dL (12.0-16.0); LYMPHOCYTES % (AUTO) 41.5 %; MEAN CORPUSCULAR HEMOGLOBIN 29.5 pg (27.0-31.0); MEAN CORPUSCULAR HGB CONC 31.8 g/dL (32.0-36.0); MEAN CORPUSCULAR VOLUME 92.6 fL (81.0-99.0); MEAN PLATELET VOLUME 10.8 fL (7.9-10.8); MONOCYTES # (AUTO) 0.5 10^3/uL (0.0-1.0); MONOCYTES % (AUTO) 5.7 %; NEUTROPHILS # (AUTO) 4.9 10^3/uL (1.5-6.6); NEUTROPHILS % (AUTO) 50.7 %; PLT - PLATELET COUNT 322 10^3/uL (130-450); RED BLOOD COUNT 4.21 10^6/uL (4.20-5.40); RED CELL DISTRIBUTION WIDTH 13.2 % (12.0-15.0); WHITE BLOOD COUNT 9.6 x10^3/uL (4.8-10.8)
[2023-02-08 18:41] LABS: % IRON SATURATION 13 % (20-50); ALBUMIN 3.7 g/dL (3.2-5.5); ALBUMIN/GLOBULIN RATIO 0.9 (1.0-2.2); ALKALINE PHOSPHATASE 85 IU/L (42-121); ALT ALANINE AMINOTRANSFERASE 14 IU/L (10-60); AST ASPARTATE AMINOTRANSFERASE 18 IU/L (10-42); BILIRUBIN,TOTAL 0.6 mg/dL (0.2-1.0); BUN - BLOOD UREA NITROGEN 9 mg/dL (6-20); CARBON DIOXIDE - CO2 27 mmol/L (21-32); CHLORIDE 105 mmol/L (101-111); CHOL/HDL RATIO 4.1 (<4.4); CHOLESTEROL 215 mg/dL; CREATININE 0.7 mg/dL (0.4-1.0); GFR - MDRD 92 (>89); GLUCOSE 110 mg/dL (70-100); HDL CHOLESTEROL 53 mg/dL; IRON 51 ug/dL (28-170); LDL CHOLESTEROL,CALCULATED 140 mg/dL; LDL/HDL RATIO 2.6 (<4.4); POTASSIUM 4.1 mmol/L (3.5-5.0); SODIUM 137 mmol/L (135-145); TOTAL IRON BINDING CAPACITY 386 ug/dL (250-450); TOTAL PROTEIN 7.6 g/dL (6.7-8.2); TRANSFERRIN 276 mg/dL (192-382); TRIGLYCERIDES 108 mg/dL; VLDL CHOLESTEROL 22 mg/dL
[2023-02-08 18:51] LABS: THYROID STIMULATING HORMONE 1.13 uIU/mL (0.34-5.60)
[2023-02-08 18:56] LABS: FERRITIN 11.9 ng/mL (11.0-306.8)
[2023-02-08 20:57] LABS: ESTIMATED AVERAGE GLUCOSE 114 mg/dL (70-100); HEMOGLOBIN A1c% 5.6 % (4.27-6.07)
[2023-02-09 05:12] LABS: HSV 1 IGG TYPE SPEC 7.22 index (0.00-0.90); HSV 2 IGG TYPE SPEC <0.91 index (0.00-0.90)
[2023-02-09 06:10] LABS: HIV SCREEN 4TH GENERATION Non Reactive (Non Reactive)
[2023-02-09 07:10] LABS: RPR Non Reactive (Non Reactive)
== END 2023-02-08 10:22 | disposition home or self-care (01) ==
LOC: LAB.N 10:21
PROVIDERS: ATTEND Physician Assistant
DX: D50.9 Iron deficiency anemia, unspecified (principal); R73.01 Impaired fasting glucose; Z13.9 Encounter for screening, unspecified; E78.6 Lipoprotein deficiency; Z13.29 Encounter for screening for other suspected endocrine disorder; Z11.3 Encounter for screening for infections with a predominantly sexual mode of transmission
CPT/HCPCS: 36415; 80053; 80061; 82728; 83036; 83540; 83721; 84443; 84466; 85025; 86592; 86695; 86696; 87389

== ENCOUNTER 2023-03-01 08:00 | Outpatient (CLI) | payer OTHER | END 2023-03-01 23:59 | disposition home or self-care (01) | LOC: LAB.R 08:00 | PROVIDERS: ATTEND Physician Assistant Medical | DX: R30.0 Dysuria (principal) | CPT/HCPCS: 87086 ==

== ENCOUNTER 2023-04-29 13:16 | Outpatient (CLI) | payer OTHER ==
[2023-04-29 20:59] LABS: CHLAMYDIA TRACHOMATIS DNA NEGATIVE (NEGATIVE); NEISSERIA GONORRHOEAE DNA NEGATIVE (NEGATIVE); TRICHOMONAS VAGINALIS DNA NEGATIVE (NEGATIVE)
[2023-05-01 16:08] LABS: HSV 1 IGG TYPE SPEC 1.63 index (0.00-0.90); HSV 2 IGG TYPE SPEC <0.91 index (0.00-0.90)
[2023-05-02 03:09] LABS: RPR Non Reactive (Non Reactive)
[2023-05-02 06:10] LABS: HIV SCREEN 4TH GENERATION Non Reactive (Non Reactive)
== END 2023-04-29 13:17 | disposition home or self-care (01) ==
LOC: LAB.N 13:16
PROVIDERS: ATTEND Physician Assistant
DX: Z20.2 Contact with and (suspected) exposure to infections with a predominantly sexual mode of transmission (principal)
CPT/HCPCS: 36415; 86592; 86695; 86696; 87389; 87491; 87591; 87661

== ENCOUNTER 2023-09-19 09:42 | Outpatient (CLI) | payer OTHER ==
--- NOTE | 2023-09-20 11:06 | Mammography Report ---
BILATERAL DIGITAL SCREENING MAMMOGRAM 3D/2D: 09/19/2023 CLINICAL: Routine screening. Comparison is made to exams dated: 08/30/2022 ultrasound, 08/30/2022 mammogram, and 08/23/2022 mammog [facility]. There are scattered areas of fibroglandular density in both breasts (category b / 25%-50% glandular t issue). No significant masses, calcifications, or other findings are seen in either breast. There has been no significant interval change. IMPRESSION: NEGATIVE There is no mammographic evidence of malignancy. A 1 year screening mammogram is recommended. Based on the Tyrer Cuzick model (a risk assessment model) the patients lifetime risk is 10.4% and he r 10 year risk is 1.5%. According to the ACR, ACS, and NCCN guidelines, an annual breast MRI exam amor ng with mammogram is recommended if the patients lifetime risk is 20% or greater. This exam was interpreted at Station ID: [id number]. NOTE: For mammograms, a report in lay terms will be sent to the patient. Approximately 15% of breast malignancies will not be visualized mammographically. In the management of a palpable breast mass, a negative mammogram must not discourage biopsy of a clinically suspicious lesion. Electronically Signed By: Radha akhtar/wei:09/19/2023 15:27:40 letter sent: No_Letter ACR BI-RADS Category 1: Negative 3341F PARENCHYMAL PATTERN: (A) - The breast(s) demonstrate(s) scattered fibroglandular densities. BI-RADS CATEGORY: (1) - 1 Mammogram [id number] 1 year screening LATERALITY: (B)
== END 2023-09-19 09:43 | disposition home or self-care (01) ==
LOC: DI.N 09:42
PROVIDERS: ATTEND Physician Assistant
DX: Z12.31 Encounter for screening mammogram for malignant neoplasm of breast (principal); R92.323 Mammographic fibroglandular density, bilateral breasts

== ENCOUNTER 2023-10-27 08:00 | Outpatient (CLI) | payer OTHER ==
[2023-10-27 20:34] LABS: CHLAMYDIA TRACHOMATIS DNA NEGATIVE (NEGATIVE); NEISSERIA GONORRHOEAE DNA NEGATIVE (NEGATIVE); TRICHOMONAS VAGINALIS DNA NEGATIVE (NEGATIVE)
== END 2023-10-27 23:59 | disposition home or self-care (01) ==
LOC: LAB 08:00
PROVIDERS: ATTEND Obstetrics & Gynecology
DX: Z11.3 Encounter for screening for infections with a predominantly sexual mode of transmission (principal)
CPT/HCPCS: 36415; 86592; 87389; 87491; 87591; 87661

== ENCOUNTER 2023-10-27 09:52 | Outpatient (CLI) | payer OTHER ==
[2023-10-28 05:12] LABS: RPR Non Reactive (Non Reactive)
[2023-10-29 08:08] LABS: HIV SCREEN 4TH GENERATION Non Reactive (Non Reactive)
== END 2023-10-27 09:53 | disposition home or self-care (01) ==
LOC: LAB 09:52
PROVIDERS: ATTEND Obstetrics & Gynecology
DX: Z11.3 Encounter for screening for infections with a predominantly sexual mode of transmission (principal)
CPT/HCPCS: 36415; 86592; 87389

== ENCOUNTER 2024-02-18 08:24 | Outpatient (CLI) | payer OTHER ==
--- NOTE | 2024-02-18 11:44 | Ultrasound Report ---
PROCEDURE: Pelvic w/Transvaginal INDICATIONS: AUB TECHNIQUE: Real-time scanning was performed of the pelvic organs, with image documentation. Additional endovagi nal scanning was necessary due to incomplete visualization of the adnexal and endometrial structures by transabdominal scanning. COMPARISON: None. FINDINGS: Uterus: Uterus is anteverted and normal in size at 8.6 x 4.1 x 6.4 cm. The myometrium is heterogene ous, no discrete uterine fibroid is seen.. The endometrium measures 2 mm in combined thickness. Cys tic focus anterior to the endometrium measures 5 x 3 x 5 mm in size is seen. A nabothian cyst measure s 1.2 x 0.8 x 1.2 cm in size is noted in endocervical canal. Ovaries: The right ovary measures 2.1 x 1.4 x 1.6 cm, with a calculated ovarian volume of 2.3 cc. T he left ovary measures 1.3 x 2.4 x 1.4 cm, with a calculated ovarian volume of 2.3 cc. The ovaries h ave a normal sonographic appearance. Less than 12 follicles can be seen in each ovary. No adnexal m asses are seen. No cystic lesions measuring greater than 3 cm. Other: No pathologic free abdominal or pelvic fluid. IMPRESSION: 1. 5 mm cystic structure along anterior aspect of endometrium and may represent a small endometrial c yst. No definite solid appearing endometrial lesion. Nabothian cyst as above. 2. Normal-appearing bilateral ovaries. Reviewed by: Kosta Harry MD on 02/18/2024 11:42 AM PDT Approved by: Kosta Harry MD on 02/18/2024 11:42 AM PDT Station ID: [id number]
== END 2024-02-18 08:25 | disposition home or self-care (01) ==
LOC: DI 08:24
PROVIDERS: ATTEND Obstetrics & Gynecology
DX: N93.9 Abnormal uterine and vaginal bleeding, unspecified (principal); R93.89 Abnormal findings on diagnostic imaging of other specified body structures

== ENCOUNTER 2024-02-29 10:30 | Outpatient (CLI) | payer OTHER ==
[2024-02-29 23:12] LABS: CHLAMYDIA TRACHOMATIS DNA NEGATIVE (NEGATIVE); NEISSERIA GONORRHOEAE DNA NEGATIVE (NEGATIVE)
[2024-02-29 23:16] LABS: TRICHOMONAS VAGINALIS DNA POSITIVE (NEGATIVE)
== END 2024-02-29 10:31 | disposition home or self-care (01) ==
LOC: LAB.N 10:30
PROVIDERS: ATTEND Physician Assistant
DX: Z20.2 Contact with and (suspected) exposure to infections with a predominantly sexual mode of transmission (principal)
CPT/HCPCS: 36415; 86592; 86695; 86696; 86803; 87389; 87491; 87591; 87661

== ENCOUNTER 2024-03-28 11:38 | Outpatient (CLI) | payer OTHER ==
[2024-03-28 20:24] LABS: CHLAMYDIA TRACHOMATIS DNA NEGATIVE (NEGATIVE); NEISSERIA GONORRHOEAE DNA NEGATIVE (NEGATIVE); TRICHOMONAS VAGINALIS DNA NEGATIVE (NEGATIVE)
[2024-03-29 07:10] LABS: RPR Non Reactive (Non Reactive)
== END 2024-03-28 11:39 | disposition home or self-care (01) ==
LOC: LAB.N 11:38
PROVIDERS: ATTEND Physician Assistant
DX: Z20.2 Contact with and (suspected) exposure to infections with a predominantly sexual mode of transmission (principal)
CPT/HCPCS: 36415; 86592; 87491; 87591; 87661

== ENCOUNTER 2024-05-20 10:04 | Outpatient (CLI) | payer OTHER ==
[2024-05-20 17:17] LABS: CHLAMYDIA TRACHOMATIS DNA NEGATIVE (NEGATIVE); NEISSERIA GONORRHOEAE DNA NEGATIVE (NEGATIVE); TRICHOMONAS VAGINALIS DNA NEGATIVE (NEGATIVE)
== END 2024-05-20 10:05 | disposition home or self-care (01) ==
LOC: LAB.N 10:04
PROVIDERS: ATTEND Physician Assistant
DX: Z20.2 Contact with and (suspected) exposure to infections with a predominantly sexual mode of transmission (principal)
CPT/HCPCS: 87491; 87591; 87661